=== PATIENT | male | born 1950 | race Caucasian/White ===

== ENCOUNTER 2017-08-06 16:29 | Observation (INO) | payer OTHER ==
[2017-08-06] MEDS ORDERED: PHENOBARBITAL SODIUM INJ 65 MG VIAL IM PRN (17:47)
[2017-08-06] MEDS ORDERED: MOTRIN TAB 800 MG PO PRN (17:47)
[2017-08-06] MEDS ORDERED: MILK OF MAGNESIA PO PRN (17:47)
[2017-08-06] MEDS ORDERED: LIBRIUM PO PRN (17:47)
[2017-08-06] MEDS ORDERED: KAOPECTATE (NEW FORMULA) PO PRN (17:47)
[2017-08-06] MEDS ORDERED: MAALOX or MYLANTA PO PRN (17:47)
[2017-08-06 18:12] LABS: BASOPHILS # (AUTO) 0.1 X10^3/uL (0.0-0.1); BASOPHILS % (AUTO) 0.7 % (0.2-1.0); EOSINOPHILS # (AUTO) 0.1 x10^3/uL (0.0-0.2); EOSINOPHILS % (AUTO) 1.3 % (0.9-2.9); HEMATOCRIT 40.1 % (42.0-54.0); HEMOGLOBIN 13.8 g/dL (13.5-18.0); LYMPHOCYTES # (AUTO) 2.3 X10^3/uL (1.3-2.9); LYMPHOCYTES % (AUTO) 28.7 % (21.0-51.0); MEAN CORPUSCULAR HEMOGLOBIN 36.3 pg (27.0-34.0); MEAN CORPUSCULAR HGB CONC 34.4 g/dL (33.0-35.0); MEAN CORPUSCULAR VOLUME 105.5 fL (80.0-100.0); MEAN PLATELET VOLUME 9.1 fL (7.4-11.0); MONOCYTES # (AUTO) 1.1 x10^3/uL (0.3-0.8); MONOCYTES % (AUTO) 13.2 % (0.0-13.0); NEUTROPHILS # (AUTO) 4.5 x10^3/uL (2.2-4.8); NEUTROPHILS % (AUTO) 56.1 % (42.0-75.0); PLATELET COUNT 216 X10^3/uL (150.0-450.0); RED CELL DISTRIBUTION WIDTH 13.2 % (11.6-16.5); WHITE BLOOD COUNT 8.1 X10^3/uL (3.6-10.0)
[2017-08-06 18:21] LABS: PLATELET MORPHOLOGY COMMENT NORMAL (NORMAL)
--- NOTE | 2017-08-06 18:25 | RAD ---
HISTORY: 67-year-old male with COPD and dizziness with syncope. Study: Frontal view of the chest. Comparison: None. Findings: The trachea is midline. The cardiac silhouette is enlarged with prominent perihilar lung markings an d interstitium with low lung volumes. The lungs are clear without focal consolidation, effusion or p neumothorax. Soft tissues are unremarkable. Osseous structures are unremarkable. IMPRESSION: 1. No acute cardiopulmonary disease in a patient with COPD. Reported By:
[2017-08-06 18:27] LABS: ALANINE AMINOTRANSFERASE 34 Units/L (12-78); ALBUMIN 3.9 g/dL (3.4-5.0); ALKALINE PHOSPHATASE 85 Units/L (46-116); ASPARTATE AMINO TRANSFERASE 32 Units/L (15-37); BLOOD UREA NITROGEN 21 mg/dL (7-18); CALCIUM 9.2 mg/dL (8.5-10.1); CARBON DIOXIDE 20.2 mmol/L (21-32); CHLORIDE 109 mmol/L (98-107); CREATININE 1.45 mg/dL (0.70-1.30); SODIUM 143 mmol/L (136-145); TOTAL PROTEIN 7.9 g/dL (6.4-8.2); eGFR BLACK RACES > 60 (>60); eGFR NON BLACK RACES 52 (>60)
[2017-08-06 18:36] VITALS: BMI 27.1
[2017-08-06] MEDS: MAGNESIUM SULFATE 50% INJ IM SCH (18:36)
[2017-08-06] MEDS ORDERED: AMBIEN PO SCH (21:00)
[2017-08-06 21:23] LABS: BILIRUBIN,URINE NEGATIVE (NEGATIVE); BLOOD/HEMOGLOBIN,URINE 2+ (NEGATIVE); GLUCOSE, URINE NEGATIVE (NEGATIVE); KETONES,URINE NEGATIVE (NEGATIVE); LEUKOCYTE ESTERASE ,URINE 2+ (NEGATIVE); NITRITES,URINE POSITIVE (NEGATIVE); PROTEIN,URINE 2+ (NEGATIVE); UROBILINOGEN,URINE NORMAL (NORMAL)
[2017-08-06 21:31] LABS: APPEARANCE,URINE CLEAR (CLEAR); BACTERIA,URINE TRACE /HPF (NEGATIVE); COLOR,URINE YELLOW (YELLOW); SQUAMOUS EPITHELIAL CELL,UR NEGATIVE /HPF (NEGATIVE)
[2017-08-06] MEDS: PHENOBARBITAL TAB 30 MG (32.4MG) PO SCH (21:37)
[2017-08-07] MEDS: MAGNESIUM SULFATE 50% INJ IM SCH ×2 (02:29→10:37)
[2017-08-07 06:36] LABS: BASOPHILS # (AUTO) 0.1 X10^3/uL (0.0-0.1); BASOPHILS % (AUTO) 0.7 % (0.2-1.0); EOSINOPHILS # (AUTO) 0.1 x10^3/uL (0.0-0.2); HEMATOCRIT 36.4 % (42.0-54.0); HEMOGLOBIN 12.5 g/dL (13.5-18.0); LYMPHOCYTES # (AUTO) 2.3 X10^3/uL (1.3-2.9); LYMPHOCYTES % (AUTO) 32.5 % (21.0-51.0); MEAN CORPUSCULAR HEMOGLOBIN 35.9 pg (27.0-34.0); MEAN CORPUSCULAR HGB CONC 34.3 g/dL (33.0-35.0); MEAN CORPUSCULAR VOLUME 104.7 fL (80.0-100.0); MEAN PLATELET VOLUME 9.2 fL (7.4-11.0); MONOCYTES # (AUTO) 1.2 x10^3/uL (0.3-0.8); MONOCYTES % (AUTO) 16.4 % (0.0-13.0); NEUTROPHILS # (AUTO) 3.4 x10^3/uL (2.2-4.8); NEUTROPHILS % (AUTO) 48.4 % (42.0-75.0); PLATELET COUNT 171 X10^3/uL (150.0-450.0); RED BLOOD COUNT 3.47 X10^6/uL (4.7-6.0); RED CELL DISTRIBUTION WIDTH 13.1 % (11.6-16.5)
[2017-08-07 06:45] LABS: ALANINE AMINOTRANSFERASE 30 Units/L (12-78); ALBUMIN 3.3 g/dL (3.4-5.0); ALKALINE PHOSPHATASE 76 Units/L (46-116); ASPARTATE AMINO TRANSFERASE 24 Units/L (15-37); BLOOD UREA NITROGEN 20 mg/dL (7-18); CALCIUM 8.9 mg/dL (8.5-10.1); CARBON DIOXIDE 23.7 mmol/L (21-32); CHLORIDE 108 mmol/L (98-107); COR CA(FOR HYPOALB) 9.5 mg/dL (8.5-10.1); SODIUM 142 mmol/L (136-145); TOTAL PROTEIN 6.9 g/dL (6.4-8.2); eGFR BLACK RACES > 60 (>60); eGFR NON BLACK RACES > 60 (>60)
[2017-08-07] MEDS ORDERED: THIAMINE HCL INJ IM SCH (09:00)
[2017-08-07] MEDS: PHENOBARBITAL TAB 30 MG (32.4MG) PO SCH ×3 (09:28→16:58)
[2017-08-07] MEDS ORDERED: NS 100 ML IV 100 ML IV ONE (14:10)
--- NOTE | 2017-08-07 15:47 | RAD ---
Examination: Chest, PA and lateral views History: Cough and wheezing, COPD Comparison reference 08/06/2017. Findings: Continued normal heart size with continued chronic interstitial prominence in the perihilar zones. There is no evidence for pneumonia, pneumothorax or pleural fluid. Impression: No significant change or acute abnormality suspected. Reported By:
[2017-08-07] MEDS ORDERED: ROCEPHIN 1 GM IV PREMIX 1 GM/50 ML IV.SOLN. IV SCH (16:00)
[2017-08-07] MEDS ORDERED: ZOCOR TAB 20 MG PO SCH (16:00)
[2017-08-07] MEDS ORDERED: NS 500 ML IV 500 ML IV ONE (16:12)
[2017-08-07] MEDS ORDERED: ATIVAN TAB 1 MG PO PRN (16:18)
[2017-08-07] MEDS ORDERED: PATIENT'S HOME MEDICATION (Losartan Potassium [Losartan Potassium] 100 MG) PO SCH (16:30)
[2017-08-07 16:34] VITALS: BP 136/77
[2017-08-07] MEDS ORDERED: NEURONTIN CAP 300 MG PO SCH (17:00)
[2017-08-07] MEDS ORDERED: MOBIC TAB 15 MG PO SCH (17:00)
[2017-08-07] MEDS ORDERED: LIPITOR TAB 20 MG PO SCH (17:00)
[2017-08-07] MEDS ORDERED: NORVASC TAB 10 MG PO SCH (17:00)
--- NOTE | 2017-08-07 17:00 | CT ---
CT ANGIOGRAPHY NECK CLINICAL HISTORY: 67-year-old male with syncopal episode and history of left carotid stenosis. COMPARISON: None. TECHNIQUE: Multiple axial CT images were obtained from the skull base to the aortic arch prior to an d following the administration of IV contrast and reformatted in the sagittal and coronal planes. Rot ating 3D and MIP reformats are submitted. FINDINGS: Approximately 50% stenosis of the proximal right ICA secondary to calcific and noncalcific atheroscle rotic plaque. Evidence of prior left carotid endarterectomy with focal region of stenosis within the proximal left ICA secondary to intimal neoplasia of greater than 50 but less than 90%. Non flow limit ing calcific and noncalcific atherosclerotic plaque within the cavernous segments of the ICA bilatera lly. Right dominant vertebral artery with left vertebral artery terminating in a comment AICA/PICA tr unk. The take-off of the great vessels is conventional. The origins of the common carotid and vertebral ar teries are patent. The right vertebral artery terminates in a normal appearing basilar artery. Near-complete opacification of the ethmoid labyrinth and left maxillary sinus with trace polypoid muc osal thickening of the right maxillary sinus and sphenoid sinuses. Remaining paranasal sinuses, masto id air cells and tympanic cavities are clear. The soft tissues of the neck are within normal limits. Scattered paraseptal and centrilobular emphyse matous change. Multilevel disc degeneration and spondyloarthropathy. At C2-C3: No central canal or neural foraminal stenosis. At C3-C4: Loss of disc space with central disc osteophyte narrowing canal to approximately 8.4 mm wit h uncovertebral and facet joint hypertrophy producing mild to moderate right and mild left neural for aminal stenosis. At C4-C5: No central canal or neural foraminal stenosis. At C5-C6: Loss of disc space with central disc osteophyte narrowing canal to 7.1 mm. Uncovertebral an d facet joint hypertrophy produce mild right-sided neural foraminal stenosis. At C6-C7: Significant loss of disc space with central disc osteophyte narrows canal approximately 7 m m with severe uncovertebral and facet joint hypertrophy producing mild to moderate bilateral neural f oraminal stenosis. At C7-T1: No central canal or neural foraminal stenosis. IMPRESSION: 1. Status post left-sided carotid endarterectomy with a focal region of intimal neoplasia narrowing p roximal left ICA 2 greater than 50% less than 90%. 2. Approximately 50% stenosis of the proximal right ICA secondary to calcific and noncalcific atheros clerotic plaque. 3. No other region of high-grade stenosis, complete occlusion, dissection, aneurysm or vascular malfo rmation. 4. Pattern of mucosal thickening as described, correlate for sinusitis. Reported By:
[2017-08-08] MEDS ORDERED: COZAAR PO SCH (09:00)
[2017-08-09] MEDS ORDERED: PHENOBARBITAL TAB 15 MG (16.2MG) PO SCH (17:04)
== END 2017-08-07 18:25 | disposition home or self-care (01) ==
LOC: ICU 16:29 → UNDOADMOB 16:29 → ICU 17:30
PROVIDERS: ADMIT Internal Medicine; ATTEND Internal Medicine
DX: R55 Syncope and collapse (principal); R42 Dizziness and giddiness; N39.0 Urinary tract infection, site not specified; I10 Essential (primary) hypertension; J44.9 Chronic obstructive pulmonary disease, unspecified; F41.8 Other specified anxiety disorders; K21.9 Gastro-esophageal reflux disease without esophagitis; F10.10 Alcohol abuse, uncomplicated; E78.2 Mixed hyperlipidemia; B96.89 Other specified bacterial agents as the cause of diseases classified elsewhere
CPT/HCPCS: 36415; 70498; 71010; 71020; 80053; 80320; 81001; 85025; 87086; 87088; 87186; A4222; G0378; G6040; J0696; J3411; J3475

== ENCOUNTER → 2017-08-13 | Outpatient (CLI) | payer OTHER ==
[2013-11-23 09:55] VITALS: BP 176/94
--- NOTE | 2017-08-14 10:08 | VAS ---
HISTORY: Hypertension, peripheral vascular disease Study: Bilateral ABIs Comparison: None Findings: [place]O on the right 1.09. [place]O on the left 1.09. These values were normal. Pressures are normal. IMPRESSION: Normal ABIs bilaterally Reported By:
== END ==
LOC: RAD 13:33
PROVIDERS: ATTEND Nurse Practitioner Family
DX: I73.89 Other specified peripheral vascular diseases (principal)
CPT/HCPCS: 93923

== ENCOUNTER 2018-02-10 13:57 | Inpatient (IN) ==
[2018-02-10 15:41] LABS: BASOPHILS % (AUTO) 0.6 % (0.2-1.0); EOSINOPHILS # (AUTO) 0.1 x10^3/uL (0.0-0.2); EOSINOPHILS % (AUTO) 1.3 % (0.9-2.9); HEMOGLOBIN 12.1 g/dL (13.5-18.0); LYMPHOCYTES % (AUTO) 40.4 % (21.0-51.0); MEAN CORPUSCULAR HEMOGLOBIN 33.2 pg (27.0-34.0); MEAN CORPUSCULAR HGB CONC 33.6 g/dL (33.0-35.0); MEAN CORPUSCULAR VOLUME 98.8 fL (80.0-100.0); MEAN PLATELET VOLUME 9.4 fL (7.4-11.0); MONOCYTES # (AUTO) 0.7 x10^3/uL (0.3-0.8); MONOCYTES % (AUTO) 9.2 % (0.0-13.0); NEUTROPHILS # (AUTO) 3.6 x10^3/uL (2.2-4.8); NEUTROPHILS % (AUTO) 48.5 % (42.0-75.0); PLATELET COUNT 229 X10^3/uL (150.0-450.0); RED BLOOD COUNT 3.64 X10^6/uL (4.7-6.0); RED CELL DISTRIBUTION WIDTH 15.7 % (11.6-16.5); WHITE BLOOD COUNT 7.4 X10^3/uL (3.6-10.0)
[2018-02-10 15:53] LABS: ALANINE AMINOTRANSFERASE 16 Units/L (12-78); ALKALINE PHOSPHATASE 138 Units/L (46-116); ASPARTATE AMINO TRANSFERASE 46 Units/L (15-37); BLOOD UREA NITROGEN 17 mg/dL (7-18); CALCIUM 8.8 mg/dL (8.5-10.1); CARBON DIOXIDE 21.6 mmol/L (21-32); CHLORIDE 108 mmol/L (98-107); COR CA(FOR HYPOALB) 9.6 mg/dL (8.5-10.1); CREATININE 1.44 mg/dL (0.70-1.30); MAGNESIUM 1.9 mg/dL (1.7-2.9); SODIUM 140 mmol/L (136-145); TOTAL PROTEIN 6.6 g/dL (6.4-8.2); eGFR NON BLACK RACES 52 (>60)
[2018-02-10 16:05] VITALS: BMI 23.8
[2018-02-10] MEDS ORDERED: NS 100 ML IV 100 ML IV ONE ×2 (16:11→22:09)
--- NOTE | 2018-02-10 16:32 | VAS ---
HISTORY: Right lower extremity vasculitis and cellulitis Study: Bilateral lower extremity venous Doppler ultrasound Comparison: None TECHNIQUE: Multiple pedro scale and color flow Doppler images of the deep venous system were obtained of the bilateral lower extremities. FINDINGS: The deep venous system of the bilateral lower extremities were evaluated from the level of the common femoral vein through the popliteal vein. Normal color flow and augmentation can be observed. In ad dition, normal compression is seen throughout the deep venous system. IMPRESSION: 1. Negative for DVT. Reported By:
--- NOTE | 2018-02-10 17:59 | CT ---
HISTORY: Peripheral artery disease, hypertension, hyperlipidemia Study: CTA bilateral lower extremity runoff Comparison: None Technique: Multiple axial images of the bilateral lower extremities were obtained as well as the pelvis and part ial abdomen after the administration of IV contrast. Maximum intensity projection images were obtain ed in the coronal and sagittal planes as well. Findings: Vascular findings: There is moderate atherosclerotic disease of the abdominal aorta without aneurysm or dissection. The celiac trunk is widely patent. The superior mesenteric artery is widely patent as well. There appears to be short segment moderate to severe stenosis within the proximal right renal artery. This stenosi s could possibly measure up to 80%. There is mild atherosclerotic disease at the origin of the left r enal artery without significant stenosis. The inferior mesenteric artery is patent. Moderate atherosc lerotic disease is noted at the bilateral common iliac arteries without significant stenosis. The shiva ateral external iliac arteries are patent. Extensive atherosclerotic disease of the bilateral interna l carotid arteries and their branches noted. Mild stenoses are present within the right common femora l artery. There are multi focal moderate stenoses throughout the right superficial femoral artery. Wi thin the mid to distal right superficial femoral artery there is short segment severe stenosis due to heavily calcified plaque. The right popliteal artery is patent. Severe stenosis is evident within th e proximal right anterior tibial artery and throughout the right tibioperoneal trunk. The right anter ior tibial artery remains patent throughout, as is the right dorsalis pedis. The right posterior tibi al artery is patent throughout to the level of the foot as well. There is diminutive flow within the distal right peroneal artery. Moderate atherosclerotic disease is noted involving the left common fem oral artery without significant stenosis. Multi focal short segment moderate stenoses are present thr oughout the left superficial femoral artery. Within the mid left superficial femoral artery there is short segment severe stenosis of approximately 80%. Severe stenosis is present within the very distal left popliteal artery, extending into the origins of the left anterior tibial artery and left tibiop eroneal trunk. The left anterior tibial artery remains patent throughout, as is the left dorsalis ped is. The left posterior tibial and left peroneal arteries remain patent throughout as well. Incidental findings: There is suggestion of a poorly marginated low attenuating lesion within the left hepatic lobe, best demonstrated on series 8, image 4 and measuring approximately 3.0 cm in diameter. Correlation with du al phase CT versus MRI with and without contrast is recommended in a nonemergent setting. A tiny cyst is noted within the midpole the right kidney. The patient is status post L4-L5 posterior interbody f usion. There are chronic appearing compression fractures involving the T12, L1, and L2 vertebral bodi es. Grade 1 retrolisthesis of L3 on L4 is noted as well as grade 1 anterolisthesis of L4 on L5. IMPRESSION: 1. Multi focal stenoses throughout the bilateral lower extremity arterial system without occlusion. Please see above discussion for complete details. 2. Indeterminate hepatic lesion for which correlation with dual phase CT versus MRI of the abdomen wi th and without contrast is recommended in a nonemergent outpatient setting. Reported By:
[2018-02-10] MEDS: PROTONIX INJ 40 MG VIAL IVP SCH (18:10)
[2018-02-10] MEDS ORDERED: ATIVAN TAB 1 MG PO PRN (18:14)
[2018-02-10] MEDS ORDERED: PERCOCET TAB 5/325 MG PO PRN (18:39)
[2018-02-10 18:44] LABS: FREE T4 (FREE THYROXINE) 0.68 ng/dL (0.76-1.46); TSH (3RD GENERATION) 2.609 uIU/mL (0.358-3.74)
--- NOTE | 2018-02-10 19:04 | RAD ---
HISTORY: Chest pain Study: Single view of the chest. Comparison: None. Findings: The cardiomediastinal silhouette is normal. No focal consolidations, pleural effusions or pneumothora x. Osseous structures demonstrate no acute abnormality. IMPRESSION: 1. No acute cardiopulmonary process. Reported By:
[2018-02-10] MEDS ORDERED: ZOLOFT PO ONE (21:56)
[2018-02-10] MEDS ORDERED: NS 100 ML IV + SPIKE MINIBAG* 100 ML IV ONE (22:00)
[2018-02-10] MEDS: TEFLARO 600 MG in NS 100 ML IV + SPIKE MINIBAG* 100 ML IV SCH (22:00)
[2018-02-10] MEDS ORDERED: TEFLARO IV ONE (22:00)
[2018-02-10] MEDS: ZOLOFT PO SCH (22:00)
[2018-02-10] MEDS: SINEMET (PLAIN) 25/250 MG PO SCH (22:00)
[2018-02-11 06:07] LABS: BASOPHILS # (AUTO) 0.1 X10^3/uL (0.0-0.1); BASOPHILS % (AUTO) 1.1 % (0.2-1.0); EOSINOPHILS # (AUTO) 0.1 x10^3/uL (0.0-0.2); HEMATOCRIT 35.3 % (42.0-54.0); HEMOGLOBIN 11.8 g/dL (13.5-18.0); LYMPHOCYTES # (AUTO) 2.4 X10^3/uL (1.3-2.9); LYMPHOCYTES % (AUTO) 40.7 % (21.0-51.0); MEAN CORPUSCULAR HEMOGLOBIN 33.3 pg (27.0-34.0); MEAN CORPUSCULAR HGB CONC 33.5 g/dL (33.0-35.0); MEAN CORPUSCULAR VOLUME 99.4 fL (80.0-100.0); MEAN PLATELET VOLUME 9.6 fL (7.4-11.0); MONOCYTES # (AUTO) 0.6 x10^3/uL (0.3-0.8); MONOCYTES % (AUTO) 10.5 % (0.0-13.0); NEUTROPHILS # (AUTO) 2.7 x10^3/uL (2.2-4.8); NEUTROPHILS % (AUTO) 45.7 % (42.0-75.0); PLATELET COUNT 206 X10^3/uL (150.0-450.0); RED BLOOD COUNT 3.56 X10^6/uL (4.7-6.0); RED CELL DISTRIBUTION WIDTH 15.5 % (11.6-16.5)
[2018-02-11 06:22] LABS: ALANINE AMINOTRANSFERASE 8 Units/L (12-78); ALBUMIN 2.6 g/dL (3.4-5.0); ALKALINE PHOSPHATASE 124 Units/L (46-116); ASPARTATE AMINO TRANSFERASE 26 Units/L (15-37); BLOOD UREA NITROGEN 14 mg/dL (7-18); CALCIUM 8.5 mg/dL (8.5-10.1); CARBON DIOXIDE 21.6 mmol/L (21-32); CHLORIDE 112 mmol/L (98-107); CHOLESTEROL 125 mg/dL (0-200); COR CA(FOR HYPOALB) 9.6 mg/dL (8.5-10.1); CREATININE 1.19 mg/dL (0.70-1.30); HDL CHOLESTEROL 31 mg/dL (40-60); SODIUM 144 mmol/L (136-145); TOTAL PROTEIN 5.9 g/dL (6.4-8.2); TRIGLYCERIDES 150 mg/dL (0-150); eGFR NON BLACK RACES > 60 (>60)
[2018-02-11] MEDS: SINEMET (PLAIN) 25/250 MG PO SCH ×3 (06:34→21:30)
[2018-02-11 07:27] LABS: BILIRUBIN,URINE NEGATIVE (NEGATIVE); BLOOD/HEMOGLOBIN,URINE NEGATIVE (NEGATIVE); GLUCOSE, URINE NEGATIVE (NEGATIVE); KETONES,URINE NEGATIVE (NEGATIVE); LEUKOCYTE ESTERASE ,URINE NEGATIVE (NEGATIVE); NITRITES,URINE NEGATIVE (NEGATIVE); PROTEIN,URINE 2+ (NEGATIVE); UROBILINOGEN,URINE NORMAL (NORMAL)
[2018-02-11 07:28] LABS: APPEARANCE,URINE CLEAR (CLEAR); COLOR,URINE YELLOW (YELLOW)
[2018-02-11 07:34] LABS: BACTERIA,URINE NEGATIVE /HPF (NEGATIVE); MUCUS,URINE FEW /HPF (NEGATIVE); RBC,URINE NONE SEEN /HPF (NONE SEEN); SQUAMOUS EPITHELIAL CELL,UR NEGATIVE /HPF (NEGATIVE)
[2018-02-11] MEDS ORDERED: TORADOL 30 MG VIAL IVP ONE (08:40)
[2018-02-11] MEDS ORDERED: ZOLOFT PO ONE ×2 (10:05→18:22)
[2018-02-11] MEDS: NORVASC TAB 10 MG PO SCH (10:07)
[2018-02-11] MEDS: PROTONIX INJ 40 MG VIAL IVP SCH (10:07)
[2018-02-11] MEDS: LIPITOR TAB 20 MG PO SCH (10:07)
[2018-02-11] MEDS: TEFLARO 600 MG in NS 100 ML IV + SPIKE MINIBAG* 100 ML IV SCH ×2 (10:08→21:30)
[2018-02-11] MEDS: PLAVIX PO SCH (10:08)
[2018-02-11] MEDS ORDERED: NS 250 ML IV 250 ML IV ONE (10:30)
--- NOTE | 2018-02-11 17:44 | DR.H&P ---
H&P - History & Physical for Day of: H&P Date: 02/10/18 - Chief Complaint Chief Complaint: high blood pressure, red streak up right leg, dizziness - History of Present Illness History of Present Illness: 67 WM DIRECT ADMIT FROM DR NO OFFICE AFTER PRESENTING WITH CO ELEVATED BLOOD PRESSURE AND BRIGHT RED STREAK UP A VEIN IN HIS RLE. PT DENIES ANY INJURY. PT HAS HX OF COPD, PAD, HTN, CAROTID ARTERY STENOSIS,CURRENTLY ON BP MEDS AND PLAVIX & STATES HE HAS BEEN TAKING MEDS PRESCRIBED. PT ADMITTED FOR IV ATBX, BLOOD CULTURES, BP CONTROL, EVALUATION OF ACUTE SYMPTOMS - Past Medical History Past Medical History: Anxiety, Arthritis, COPD, GERD, Hypertension Additional Medical History: HX ETOH USE, SOBER X 1 MONTH - Past Surgical History Surgical History: Carotid Endarterectomy - Family History Family Medical History: Diabetes Mellitus, Cancer, Hypertension - Social History Does patient currently use any type of tobacco product: Yes Have you used tobacco products in the last 12 months: Yes Type of Tobacco Use: Cigarettes Does any household member use tobacco: Yes Alcohol Use: Occasionally Drug Use: None - Medications Home Medications: No Known Drug Allergies [NKDA] Allergy (Verified 08/06/17 19:22) CONTINUE taking the following medications carbidopa-levodopa 1 tab PO TID 02/10/18 [History] citalopram 20 mg PO DAILY 02/10/18 [History] esomeprazole magnesium 40 mg PO DAILY 02/10/18 [History] meclizine 25 mg PO TID 02/10/18 [History] sertraline 100 mg PO Q24H 02/10/18 [History] - Review of Systems Constitutional: Weakness, Malaise Eyes: No Symptoms Reported ENT: No Symptoms Reported Respiratory: SOB with Excertion Cardiovascular: Light Headedness. denies: Chest Pain Gastrointestinal: denies: Nausea Genitourinary: No Symptoms Reported Musculoskeletal: Back Pain, Leg Pain Skin: Other (REDNESS RLE) Neurological: Other (DIZZINESS) - Physical Exam Vital Signs: Temperature 99 F Pulse Rate [Left Radial] 82 Respiratory Rate 20 Blood Pressure [Right Arm] 109/65 Blood Pressure 136/77 O2 Sat by Pulse Oximetry 94 Oriented: Normal Eyes: Normal Ear: Normal Nose: Normal Throat: Normal Respiratory: RLL Diminished, LLL Diminished Cardiovascular: Normal. negative: Edema : Normal Auscultation: Bowel Sounds: Normal Palpation: Normal Tenderness: Normal Skin: Red, Tender (RED STREAK ALONG PALPABLE VESSEL TO RLE UP TO MID SCHULTE) Musculoskeletal: Right, Leg, Back:Lumbar, Sensory Deficit, Instability, Crepitance Psychiatric: Anxiety Mood Description: Calm Speech Pattern: Clear, Appropriate - Assessment/Plan (1) Uncontrolled hypertension Status: Acute Plan: PT, BP CONTROL BLOOD CULTURES. ADMISSION LABS, CXR, EKG. VENOUS US, CTA LOWER EXTREMITIES, CONTINUE PLAVIX, BP CONTROL. ANTI LIPID MEDICATION, TELEMETRY. IV ATBX (2) Carotid artery disease Status: Acute (3) PAD (peripheral artery disease) Status: Acute (4) Phlebitis Status: Acute (5) Dizziness Status: Acute - Allergies Allergies/Adverse Reactions: Allergies Allergy/AdvReac Type Severity Reaction Status Date / Time No Known Drug Allergies Allergy Verified 08/06/17 19:22 [NKDA]
--- NOTE | 2018-02-11 17:58 | PCM.PROG ---
Progress Note - Progress Note for Day of Date of Exam: 02/11/18 - Subjective Subjective: 67 WM ADMITTED ON 02/10 WITH REDNESS TO RLE, PHLEBITIS CURRENTLY ON IV ATBX, BLOOD CULTURES PENDING. PT CONTINUE SWITH RED STREAKING THIS AM, CTA DIFFUSE VASCULAR DISEASE WITHOUT OCCLUSION. PT BP CONTROLLED THIS. PT TO HAVE CTA CAROTID ARTERIES. DENIES ANY DIZZINESS AT REST. - Past Medical Family Social History Past Med/Fam/Surg Hx: No changes since H&P Allergies: Allergies No Known Drug Allergies [NKDA] Allergy (Verified 08/06/17 19:22) - Review of Systems ROS: No change since H&P - Vital Signs and I&O's Vital Signs: Temperature 99 F Pulse Rate [Left Radial] 82 Respiratory Rate 20 Blood Pressure [Right Arm] 109/65 Blood Pressure 136/77 O2 Sat by Pulse Oximetry 94 Intake and Output: Intake & Output 02/09/18 02/10/18 02/11/18 02/12/18 11:59 11:59 11:59 11:59 Intake Total 710 / 710 917 / 917 Balance 710 / 710 917 / 917 - Physical Exam Oriented: Normal Eyes: Normal Ear: Normal Nose: Normal Throat: Normal Respiratory: Diminished Cardiovascular: Normal. negative: Edema : Normal Auscultation: Bowel Sounds: Normal Tenderness: Normal Skin: Red, Tender (RED STREAK ALONG PALPABLE VESSEL TO RLE UP TO MID SCHULTE) Musculoskeletal: Right, Leg, Back:Lumbar, Sensory Deficit, Instability, Crepitance Psychiatric: Anxiety Mood Description: Calm Speech Pattern: Clear, Appropriate - Laboratory and Diagnostics Result Diagrams: 02/11/18 05:46 02/11/18 05:46 Labs: Laboratory WBC 6.0 X10^3/uL (3.6-10.0) 02/11/18 05:46 RBC 3.56 X10^6/uL (4.7-6.0) L 02/11/18 05:46 Hgb 11.8 g/dL (13.5-18.0) L 02/11/18 05:46 Hct 35.3 % (42.0-54.0) L 02/11/18 05:46 MCV 99.4 fL (80.0-100.0) 02/11/18 05:46 MCH 33.3 pg (27.0-34.0) 02/11/18 05:46 MCHC 33.5 g/dL (33.0-35.0) 02/11/18 05:46 RDW 15.5 % (11.6-16.5) 02/11/18 05:46 Plt Count 206 X10^3/uL (150.0-450.0) 02/11/18 05:46 MPV 9.6 fL (7.4-11.0) 02/11/18 05:46 Neut % (Auto) 45.7 % (42.0-75.0) 02/11/18 05:46 Lymph % (Auto) 40.7 % (21.0-51.0) 02/11/18 05:46 [place] % (Auto) 10.5 % (0.0-13.0) 02/11/18 05:46 Eos % (Auto) 2.0 % (0.9-2.9) 02/11/18 05:46 Baso % (Auto) 1.1 % (0.2-1.0) H 02/11/18 05:46 Neut # (Auto) 2.7 x10^3/uL (2.2-4.8) 02/11/18 05:46 Lymph # (Auto) 2.4 X10^3/uL (1.3-2.9) 02/11/18 05:46 [place] # (Auto) 0.6 x10^3/uL (0.3-0.8) 02/11/18 05:46 Eos # (Auto) 0.1 x10^3/uL (0.0-0.2) 02/11/18 05:46 Baso # (Auto) 0.1 X10^3/uL (0.0-0.1) 02/11/18 05:46 Absolute Nucleated RBC 0.1 /100WBC 02/11/18 05:46 ESR 30 MM/HOUR (0-15) H 02/10/18 15:48 Sodium 144 mmol/L (136-145) 02/11/18 05:46 Corrected Sodium TNP 02/11/18 05:46 Potassium 4.2 mmol/L (3.5-5.1) 02/11/18 05:46 Chloride 112 mmol/L (98-107) H 02/11/18 05:46 Carbon Dioxide 21.6 mmol/L (21-32) 02/11/18 05:46 BUN 14 mg/dL (7-18) 02/11/18 05:46 Creatinine 1.19 mg/dL (0.70-1.30) 02/11/18 05:46 Est GFR (MDRD) Af Amer > 60 (>60) 02/11/18 05:46 Est GFR (MDRD) Non-Af > 60 (>60) 02/11/18 05:46 Glucose 77 mg/dL (65-99) 02/11/18 05:46 Calcium 8.5 mg/dL (8.5-10.1) 02/11/18 05:46 Corrected Calcium 9.6 mg/dL (8.5-10.1) 02/11/18 05:46 Magnesium 1.9 mg/dL (1.7-2.9) 02/10/18 15:28 Total Bilirubin 0.20 mg/dL (0.2-1.0) 02/11/18 05:46 AST 26 Units/L (15-37) 02/11/18 05:46 ALT 8 Units/L (12-78) L 02/11/18 05:46 Alkaline Phosphatase 124 Units/L (46-116) H 02/11/18 05:46 C-Reactive Protein 5.60 mg/L (0-3.0) H 02/10/18 15:48 Total Protein 5.9 g/dL (6.4-8.2) L 02/11/18 05:46 Albumin 2.6 g/dL (3.4-5.0) L 02/11/18 05:46 Globulin 3.3 g/dL (2.5-4.5) 02/11/18 05:46 Albumin/Globulin Ratio 0.8 Ratio (1.1-2.1) L 02/11/18 05:46 Triglycerides 150 mg/dL (0-150) 02/11/18 05:46 Cholesterol 125 mg/dL (0-200) 02/11/18 05:46 LDL Cholesterol, Calc 64 mg/dL (0-100) 02/11/18 05:46 HDL Cholesterol 31 mg/dL (40-60) L 02/11/18 05:46 Cholesterol/HDL Ratio 4.0 (0.0-5.0) 02/11/18 05:46 Free T4 0.68 ng/dL (0.76-1.46) L 02/10/18 15:28 TSH 3rd Generation 2.609 uIU/mL (0.358-3.74) 02/10/18 15:28 Specimen Type Random urine 02/11/18 06:30 Urine Color Yellow (YELLOW) 02/11/18 06:30 Urine Appearance Clear (CLEAR) 02/11/18 06:30 Urine pH 5.0 (5.0 - 8.0) 02/11/18 06:30 Ur Specific [place] 1.010 (1.000-1.030) 02/11/18 06:30 Urine Protein 2+ (NEGATIVE) 02/11/18 06:30 Urine Glucose (UA) Negative (NEGATIVE) 02/11/18 06:30 Urine Ketones Negative (NEGATIVE) 02/11/18 06:30 Urine Occult Blood Negative (NEGATIVE) 02/11/18 06:30 Urine Nitrite Negative (NEGATIVE) 02/11/18 06:30 Urine Bilirubin Negative (NEGATIVE) 02/11/18 06:30 Urine Urobilinogen Normal (NORMAL) 02/11/18 06:30 Ur Leukocyte Esterase Negative (NEGATIVE) 02/11/18 06:30 Urine RBC None seen /HPF (NONE SEEN) 02/11/18 06:30 Urine WBC None seen /HPF (NONE SEEN) 02/11/18 06:30 Ur Squamous Epith Cells Negative /HPF (NEGATIVE) 02/11/18 06:30 Urine Bacteria Negative /HPF (NEGATIVE) 02/11/18 06:30 Urine Mucus Few /HPF (NEGATIVE) 02/11/18 06:30 Ur Culture Indicated? No/not indicated 02/11/18 06:30 - Plan (1) Uncontrolled hypertension Status: Acute Plan: PT, BP CONTROL BLOOD CULTURES. AM LABS, CXR, EKG. VENOUS US, CTA LOWER EXTREMITIES, CONTINUE PLAVIX, BP CONTROL. ANTI LIPID MEDICATION, TELEMETRY. IV ATBX (2) Carotid artery disease Status: Acute (3) PAD (peripheral artery disease) Status: Acute (4) Phlebitis Status: Acute Plan: BLOOD CULTURES, IV ATBX (5) Dizziness Status: Acute
[2018-02-11] MEDS: ZOLOFT PO SCH (18:35)
[2018-02-12] MEDS: SINEMET (PLAIN) 25/250 MG PO SCH ×2 (06:33→15:19)
[2018-02-12] MEDS ORDERED: NS 100 ML IV 100 ML IV ONE (06:56)
[2018-02-12] MEDS ORDERED: ZOLOFT PO ONE (10:01)
[2018-02-12] MEDS: LIPITOR TAB 20 MG PO SCH (10:03)
[2018-02-12] MEDS: NORVASC TAB 10 MG PO SCH (10:03)
[2018-02-12] MEDS: PROTONIX INJ 40 MG VIAL IVP SCH (10:04)
[2018-02-12] MEDS: TEFLARO 600 MG in NS 100 ML IV + SPIKE MINIBAG* 100 ML IV SCH (10:05)
[2018-02-12] MEDS: PLAVIX PO SCH (10:05)
[2018-02-12] MEDS ORDERED: NS 500 ML IV 500 ML IV ONE (10:29)
--- NOTE | 2018-02-12 14:37 | CT ---
HISTORY: Peripheral artery disease with hypertension and stenosis of left carotid artery. Study: CTA carotids with contrast Comparison: CTA carotids dated July 28, 2017. Technique: Multiple axial images of the soft tissue neck were obtained from skull base to the aortic arch after the administration of IV contrast. Sagittal and coronal reformats were performed and revi ewed. MIP images were also performed. Dose reduction techniques including Automated Exposure Control (AEC) and adjustment of mA and kV were utilized. Findings: The visualized portions of the posterior fossa and orbits are unremarkable in appearance. The paroti d glands, submandibular glands, and thyroid gland are unremarkable in their contrast appearance. No mass or significant lymphadenopathy can be identified. The prevertebral and paraspinous regions are unremarkable. The nasopharynx, oropharynx, hypopharynx are unremarkable. The larynx appears symmetr ic. Approximately 50% stenosis of the proximal right ICA secondary to hard and soft plaque appears u nchanged given technique. Postsurgical changes status post left carotid endarterectomy. Approximately 50-90% stenosis of the proximal left ICA with hard and soft plaque appears unchanged given technique . Right dominant vertebral artery is again seen. Remaining vasculature demonstrates normal course and caliber without evidence of focal stenosis, dissection, aneurysmal dilatation, or extravasation. The visualized mediastinum and lung apices appear normal. Degenerative changes of the spine. No aggressi ve osseous lesions. IMPRESSION: 1. Postsurgical changes of the left carotid artery with approximately 50-90% stenosis of the left int ernal carotid artery. This appears unchanged given technique. 2. Approximately 50% stenosis of the right proximal internal carotid artery. This appears unchanged. Reported By:
[2018-02-12 16:03] VITALS: BP 115/72
== END 2018-02-12 17:45 | disposition home or self-care (01) | DRG 301 ==
LOC: OBS 14:49
PROVIDERS: ADMIT Internal Medicine; ATTEND Internal Medicine
DX: I77.9 Disorder of arteries and arterioles, unspecified; I80.8 Phlebitis and thrombophlebitis of other sites; R79.82 Elevated C-reactive protein (CRP); E78.2 Mixed hyperlipidemia; R42 Dizziness and giddiness; J44.9 Chronic obstructive pulmonary disease, unspecified; I73.89 Other specified peripheral vascular diseases; F41.8 Other specified anxiety disorders; M13.89 Other specified arthritis, multiple sites
CPT/HCPCS: 36415; 70498; 71010; 71045; 73706; 80053; 80061; 81001; 83735; 84439; 84443; 85025; 85652; 86140; 87040; 93005; 93010; 93970; 97161; A4222; C9113; J0712; J1885; J7040; J7050